=== PATIENT | male | born 1970 | race Hispanic/Latino ===

== ENCOUNTER 2019-04-19 05:02 | Emergency (ER) | payer SELFPAY ==
[~2019-04-19 05:02] MED LIST: ADRENALIN ONE; CALCIUM CHLORIDE IV ONE; CORDARONE IV ONE
--- NOTE | 2019-04-19 05:32 | Emergency Department Report ---
HPI - General Time Seen by Provider: 04/19/19 05:25 - HPI HPI: 48-year-old male presents to the emergency department via EMS as a cardiac arrest. Apparently the initial call to EMS was for respiratory distress. The patient is a teacher of gifted students for [employer] and when EMS got to the facility the patient was pulseless. An intraosseous line was placed and chest compressions were started. They were unable to intubate the patient or provide any type of airway other than a nasal trumpet. The initial call was at 4:15 AM and EMS arrived there to start ACLS protocol at about 4:30 AM. The patient received 3 rounds of epinephrine, 3 different defibrillations secondary to V. fib seen on the monitor, but there was no return of spontaneous circulation. This patient does not appear to have ever been here before we do not have any information about any past medical history. Blood sugar in route was about 150. The patient arrives to the emergency department pulseless and in asystole. ED Review of Systems ROS: Stated complaint: CARDIAC ARREST Other details as noted in HPI Comment: Unobtainable due to pts medical conditions Physical Exam - Physical Exam Physical Exam: GENERAL: Patient is ill-appearing and unresponsive. HENT: Normocephalic. Atraumatic. EYES: Pupils are fixed and dilated. NECK: Supple. Trachea appears midline. CHEST/LUNGS: There are no spontaneous respirations. HEART/CARDIOVASCULAR: There are no spontaneous heart sounds. ABDOMEN: Abdomen is soft. Obese habitus. SKIN: Skin is cool but dry. Patient is cyanotic around the face. NEURO: Unresponsive. Does not withdraw to painful stimuli. Does not follow any commands. MUSCULOSKELETAL: There is no obvious deformity. There is no evidence of acute injury. No palpable femoral or radial pulses. - Intubation Time Out Performed: No Sedative: none Laryngoscope: other (Glydescope) Size: 4 ET Tube Size: 7.5 Tube Secured Depth (cm): 24 Tube Secured Location: lips Tube Placement Confirmation: visualized tube passing t, no breath sounds over epi, confirmation by capnometr Intubation Complications: none ED Medical Decision Making - Medical Decision Making The patient had been pulseless without any return of spontaneous circulation for over 30 minutes prior to arrival in our emergency department. He was brought to bed 1 and transferred to our rney. Chest compressions were immediately started while the patient was placed on the monitor. At this time I intubated the patient with the Glydescope. First round, the patient received epinephrine and sodium bicarbonate. The patient was still in asystole. The second round the patient received just the epinephrine and the patient was found to be in pulseless electrical activity. The third round, the patient received another dose of epinephrine and he appeared to be in V. fib. He was given a 200 J defibrillation and a 300 mg dose of amiodarone. After this third round, the patient was still pulseless and was once again in pulseless electrical activity. At this point, the patient had been pulseless for about 45 minutes. I took the bedside ultrasound and looked at the heart but there was no movement, squeeze, or even fibrillation. Time of was called. - Differential Diagnosis PE, CVA, TX, Dysrythmia Critical Care Time: Yes Critical care time in (mins) excluding proc time.: 20 Critical care attestation.: If time is entered above; I have spent that time in minutes in the direct care of this critically ill patient, excluding procedure time. Critical care time was spent on this patient and doing his initial evaluation and supervision of ACLS protocol. Critical Care Time: 20 minutes ED Disposition Clinical Impression: Cardiopulmonary arrest Disposition: DC-01 TO HOME OR SELFCARE Is pt being admited?: No Referrals: PRIMARY CARE, [Primary Care Provider] - 3-5 Days Time of Disposition: 05:33
== END 2019-04-19 06:30 | disposition home or self-care (01) ==
LOC: ED 05:02
DX: I46.9 Cardiac arrest, cause unspecified (principal)
CPT/HCPCS: 31500; 92950; 99285; J0171; J0282